=== PATIENT | male | born 1995 | race African-American/Black ===

== ENCOUNTER 2016-04-11 09:59 | Emergency (ER) | payer OTHER ==
[~2016-04-11 09:59] MED LIST: AMOX875T PO; COLC1TAB5 PO; DELT1TAB PO; IBUP600T26 PO; NAPR1TAB23 PO; NORV5TAB PO; PRED20TA PO; RANI150T PO
--- NOTE | 2016-04-11 11:55 | EDDOCDS ---
Physician Documentation [facility] Name: Toi Mendes Age: 20 yrs Sex: Male : 1995 Arrival Date: 04/11/2016 Time: 09:59 Bed TR7 Private MD: [facility] [place] Disposition: 04/11/16 11:45 Discharged to Home/Self Care. Impression: Diarrhea, unspecified. - Condition is Stable. - Discharge Instructions: Food Choices to Help Relieve Diarrhea, Adult, Diarrhea, [id number]. - Medication Reconciliation, Local Pharmacy Hours form. - Follow up: [facility]; When: Call to arrange an appointment; Reason: Further diagnostic work-up, Recheck today's complaints, Continuance of care. - Problem is new. - Symptoms are unchanged. Historical: - Allergies: no known allergies; - Home Meds: 1. none - PMHx: GERD; Migraine Headaches; pericarditis; Hypertension; - PSHx: none; - Social history: Smoking status: Patient states was never smoker of tobacco. No barriers to communication noted, The patient speaks fluent Eritrean, Speaks appropriately for age. - Family history: Not pertinent. - : The pt / caregiver states he / she is not on anticoagulants. Home medication list is obtained from the patient. - Exposure Risk Screening:: None identified. Vital Signs: 04/11 10:01 BP 154 / 70; Pulse 86; Resp 18; Temp 97.9; Pulse Ox 100% ; Weight 98.88 kg / 217.99 elp lbs; Height 5 ft. 10 in. (177.80 cm); Pain 7/10; 11:43 BP 132 / 80; Pulse 78; Resp 18; Temp 99.3; Pulse Ox 100% on R/A; Pain 2/10; ttb 10:01 Body Mass Index 31.28 (98.88 kg, 177.80 cm) elp MDM: 11:16 [facility] Payment Agreement was scanned into [employer] and attached to record. lg 11:18 Financial registration complete. Signatures: Rainer Encinas, Vicente Camargo lg RN RN mlb1 Tuan Koehler PA PA Neha Win, RN RN ttb The chart was reviewed and I authenticate all verbal orders and agree with the evaluation and treatment provided.Attachments: 11:16 [facility] Payment Agreement lg MTDD
--- NOTE | 2016-04-11 11:55 | EDDOCDS ---
Nurse's Notes [facility] Name: Toi Mendes Age: 20 yrs Sex: Male : 1995 Arrival Date: 04/11/2016 Time: 09:59 Bed TR7 Private MD: [address] Diagnosis: Diarrhea, unspecified Presentation: 04/11 10:03 Presenting complaint: Patient states: Abdominal pain and diarrhea began this am. Risk mlb1 factors: the patient reports not having a history of previous torsion. Adult Sepsis Screening: The patient does not have new or worsening altered mentation. Patient's respiratory rate is less than 22. Systolic blood pressure is greater than 100. Patient has a qSOFA score of 0- Negative Sepsis Screen. Suicide/Homicide risk assessment- the patient denies having any suicidal and/or homicidal ideations and does not present with any other emotional, behavioral or mental health complaints. 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 Transition of care: patient was not received from another setting of care. 10:03 Acuity: CASTILLO Level 3 mlb1 10:03 Method Of Arrival: Walkin/Carried/Asstd mlb1 Triage Assessment: 10:04 General: Appears in no apparent distress, Behavior is appropriate for age, cooperative. mlb1 Pain: Location: abdomen Pain currently is 7 out of 10 on a pain scale. Quality of pain is described as crampy. HIV screening NA for this visit. GI: Reports diarrhea. Derm: No deficits noted. Historical: - Allergies: no known allergies; - Home Meds: 1. none - PMHx: GERD; Migraine Headaches; pericarditis; Hypertension; - PSHx: none; - Social history: Smoking status: Patient states was never smoker of tobacco. No barriers to communication noted, The patient speaks fluent Sri Lankan, Speaks appropriately for age. - Family history: Not pertinent. - : The pt / caregiver states he / she is not on anticoagulants. Home medication list is obtained from the patient. - Exposure Risk Screening:: None identified. Screenin:40 Screening information is obtained from the patient. Fall risk: No risks identified. ttb Assistance ADL's: requires no assistance with activities of daily living. Abuse/DV Screen: The patient / caregiver reports he/she is: not in a situation that causes fear, pain or injury. Nutritional screening: No deficits noted. Advance Directives: Currently, there is no health care proxy. home support is adequate. Assessment: 11:40 General: Appears in no apparent distress, well nourished, well groomed, Behavior is ttb appropriate for age, cooperative, pleasant. Pain: Location: abdomen. Neurological: Level of Consciousness is awake, alert. Neurological: Denies dizziness. Cardiovascular: Chest pain is denied. Respiratory: No deficits noted. Airway is patent Denies cough, shortness of breath. GI: Abdomen is non- distended Bowel sounds present X 4 quads. Abd is soft Reports diarrhea. Derm: Skin is normal. Injury Description: No known injury. Vital Signs: 10:01 BP 154 / 70; Pulse 86; Resp 18; Temp 97.9; Pulse Ox 100% ; Weight 98.88 kg; Height 5 elp ft. 10 in. (177.80 cm); Pain 7/10; 11:43 BP 132 / 80; Pulse 78; Resp 18; Temp 99.3; Pulse Ox 100% on R/A; Pain 2/10; ttb 10:01 Body Mass Index 31.28 (98.88 kg, 177.80 cm) [facility] Vitals: 10:01 Log In Time: April 11, 2016 at 09:57. [facility] ED Course: 10:01 Patient visited by Billie Pak PCA. elp 10:01 [facility] [place] is Private Physician. elp 10:01 Patient visited by Billie Pak PCA. elp 10:01 Patient moved to Waiting elp 10:01 Patient moved to Pre RCE elp 10:03 Patient visited by Vicente Reynaga, IWONA. mlb1 10:03 Triage Initiated mlb1 10:05 Patient visited by Vicente Reynaga, IWONA. mlb1 10:44 Patient moved to Triage 1 kc3 11:15 Patient name changed from Toi\S\Berry\S\Mendes\S\ to Toi\S\T\S\Mendes. EDMS 11:16 [facility] [place] Agreement was scanned into [employer] and attached to record. lg 11:17 [facility] is [facility]. btw 11:17 Gisele Avery MD is Attending Physician. btw 11:17 Patient visited by Tuan Koehler PA. btw 11:40 The patient / caregiver is instructed regarding the plan of care and ED course. Patient ttb has correct armband on for positive identification. 11:40 No IV's were initiated during this patient's visit. No procedures done that require ttb assistance. 11:45 [facility], Laura Oseguera is Referral Physician. btw 11:51 Patient moved to TR7 ttb Order Results: There are currently no results for this order. Outcome: 11:40 Discharge Assessment: Patient awake, alert and oriented x 3. No cognitive and/or ttb functional deficits noted. Patient verbalized understanding of disposition instructions. Patient awake and alert. patient administered narcotics - no. The following High Risk Discharge criteria are identified: None. Condition: good Condition: stable Condition: improved. Discharge instructions given to patient, Instructed on discharge instructions, follow up and referral plans. medication usage, diet, Demonstrated understanding of instructions, medications, diet, brat, increased fluids Pt was receptive of discharge instructions/ teaching. No special radiology studies were completed. Property :Personal belongings accompany Pt. 11:45 Discharge ordered by Provider. btw 11:53 Patient left the ED. ttb Signatures: Dispatcher [employer] EDRainer Rojo, Reg Reg Vicente Barrientos RN RN mlb1 Tuan Koehler PA PA btw Neha Carmen, RN RN ttb Billie Pak PCA PCA elp Crane, Kelsi,RN RN kc3 MTDD
--- NOTE | 2016-04-13 12:55 | EDDOCDS ---
Physician Documentation [facility] Name: Toi Mendes Age: 20 yrs Sex: Male : 1995 Arrival Date: 04/11/2016 Time: 09:59 Bed TR7 Private MD: [facility] [place] Disposition: 04/11/16 11:45 Discharged to Home/Self Care. Impression: Diarrhea, unspecified. - Condition is Stable. - Discharge Instructions: Food Choices to Help Relieve Diarrhea, Adult, Diarrhea, [id number]-Jaul. - Medication Reconciliation, Local Pharmacy Hours form. - Follow up: [facility]; When: Call to arrange an appointment; Reason: Further diagnostic work-up, Recheck today's complaints, Continuance of care. - Problem is new. - Symptoms are unchanged. Historical: - Allergies: no known allergies; - Home Meds: 1. none - PMHx: GERD; Migraine Headaches; pericarditis; Hypertension; - PSHx: none; - Social history: Smoking status: Patient states was never smoker of tobacco. No barriers to communication noted, The patient speaks fluent Omani, Speaks appropriately for age. - Family history: Not pertinent. - : The pt / caregiver states he / she is not on anticoagulants. Home medication list is obtained from the patient. - Exposure Risk Screening:: None identified. Vital Signs: 04/11 10:01 BP 154 / 70; Pulse 86; Resp 18; Temp 97.9; Pulse Ox 100% ; Weight 98.88 kg / 217.99 elp lbs; Height 5 ft. 10 in. (177.80 cm); Pain 7/10; 11:43 BP 132 / 80; Pulse 78; Resp 18; Temp 99.3; Pulse Ox 100% on R/A; Pain 2/10; ttb 10:01 Body Mass Index 31.28 (98.88 kg, 177.80 cm) elp MDM: 11:16 [facility] [facility] [place] Agreement was scanned into [employer] and attached to record. lg 11:18 Financial registration complete. lg 14:02 T-Sheet-- Draft Copy was scanned into [employer] and attached to record. gb Signatures: Samantha Mederos, Reg Reg gb Rainer Encinas, Reg Reg lg Vicente Reynaga RN RN mlb1 Tuan Koehler PA PA btw Conner, Teresa, RN RN ttb The chart was reviewed and I authenticate all verbal orders and agree with the evaluation and treatment provided.Attachments: 11:16 [facility] Payment Agreement lg 14:02 T-Sheet-- Draft Copy gb Chart Complete MTDD
--- NOTE | 2016-04-13 12:55 | EDDOCDS ---
Nurse's Notes [facility] Name: Toi Mendes Age: 20 yrs Sex: Male : 1995 Arrival Date: 04/11/2016 Time: 09:59 Bed TR7 Private MD: [address] Diagnosis: Diarrhea, unspecified Presentation: 04/11 10:03 Presenting complaint: Patient states: Abdominal pain and diarrhea began this am. Risk mlb1 factors: the patient reports not having a history of previous torsion. Adult Sepsis Screening: The patient does not have new or worsening altered mentation. Patient's respiratory rate is less than 22. Systolic blood pressure is greater than 100. Patient has a qSOFA score of 0- Negative Sepsis Screen. Suicide/Homicide risk assessment- the patient denies having any suicidal and/or homicidal ideations and does not present with any other emotional, behavioral or mental health complaints. 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 Transition of care: patient was not received from another setting of care. 10:03 Acuity: CASTILLO Level 3 mlb1 10:03 Method Of Arrival: Walkin/Carried/Asstd mlb1 Triage Assessment: 10:04 General: Appears in no apparent distress, Behavior is appropriate for age, cooperative. mlb1 Pain: Location: abdomen Pain currently is 7 out of 10 on a pain scale. Quality of pain is described as crampy. HIV screening NA for this visit. GI: Reports diarrhea. Derm: No deficits noted. Historical: - Allergies: no known allergies; - Home Meds: 1. none - PMHx: GERD; Migraine Headaches; pericarditis; Hypertension; - PSHx: none; - Social history: Smoking status: Patient states was never smoker of tobacco. No barriers to communication noted, The patient speaks fluent Puerto Rican, Speaks appropriately for age. - Family history: Not pertinent. - : The pt / caregiver states he / she is not on anticoagulants. Home medication list is obtained from the patient. - Exposure Risk Screening:: None identified. Screenin:40 Screening information is obtained from the patient. Fall risk: No risks identified. ttb Assistance ADL's: requires no assistance with activities of daily living. Abuse/DV Screen: The patient / caregiver reports he/she is: not in a situation that causes fear, pain or injury. Nutritional screening: No deficits noted. Advance Directives: Currently, there is no health care proxy. home support is adequate. Assessment: 11:40 General: Appears in no apparent distress, well nourished, well groomed, Behavior is ttb appropriate for age, cooperative, pleasant. Pain: Location: abdomen. Neurological: Level of Consciousness is awake, alert. Neurological: Denies dizziness. Cardiovascular: Chest pain is denied. Respiratory: No deficits noted. Airway is patent Denies cough, shortness of breath. GI: Abdomen is non- distended Bowel sounds present X 4 quads. Abd is soft Reports diarrhea. Derm: Skin is normal. Injury Description: No known injury. Vital Signs: 10:01 BP 154 / 70; Pulse 86; Resp 18; Temp 97.9; Pulse Ox 100% ; Weight 98.88 kg; Height 5 elp ft. 10 in. (177.80 cm); Pain 7/10; 11:43 BP 132 / 80; Pulse 78; Resp 18; Temp 99.3; Pulse Ox 100% on R/A; Pain 2/10; ttb 10:01 Body Mass Index 31.28 (98.88 kg, 177.80 cm) [facility] Vitals: 10:01 Log In Time: April 11, 2016 at 09:57. [facility] ED Course: 10:01 Patient visited by Billie Pak PCA. elp 10:01 [facility] [place] is Private Physician. elp 10:01 Patient visited by Billie Pak PCA. elp 10:01 Patient moved to Waiting elp 10:01 Patient moved to Pre RCE elp 10:03 Patient visited by Vicente Reynaga, IWONA. mlb1 10:03 Triage Initiated mlb1 10:05 Patient visited by Vicente Reynaga, IWONA. mlb1 10:44 Patient moved to Triage 1 kc3 11:15 Patient name changed from Toi\S\Berry\S\Mendes\S\ to Toi\S\T\S\Mendes. EDMS 11:16 [facility] [place] Agreement was scanned into [employer] and attached to record. lg 11:17 [facility] btw 11:17 Gisele Avery MD is Attending Physician. btw 11:17 Patient visited by Tuan Koehler PA. btw 11:40 The patient / caregiver is instructed regarding the plan of care and ED course. Patient ttb has correct armband on for positive identification. 11:40 No IV's were initiated during this patient's visit. No procedures done that require ttb assistance. 11:45 [facility], Laura Oseguera is Referral Physician. btw 11:51 Patient moved to TR7 ttb 14:02 T-Sheet-- Draft Copy was scanned into [employer] and attached to record. gb Order Results: There are currently no results for this order. Outcome: 11:40 Discharge Assessment: Patient awake, alert and oriented x 3. No cognitive and/or ttb functional deficits noted. Patient verbalized understanding of disposition instructions. Patient awake and alert. patient administered narcotics - no. The following High Risk Discharge criteria are identified: None. Condition: good Condition: stable Condition: improved. Discharge instructions given to patient, Instructed on discharge instructions, follow up and referral plans. medication usage, diet, Demonstrated understanding of instructions, medications, diet, brat, increased fluids Pt was receptive of discharge instructions/ teaching. No special radiology studies were completed. Property :Personal belongings accompany Pt. 11:45 Discharge ordered by Provider. btw 11:53 Patient left the ED. ttb Signatures: Dispatcher [employer] EDMS aSmantha Mederos, Reg Reg gb Rainer Encinas, Reg Reg lg Vicente Reynaga RN RN mlb1 Tuan Koehler PA PA btw Neha Carmen RN RN ttb Billie Pak, TAMI PRODUCT SAFETY MANAGER Kelsea Quiroz,RN RN kc3 Chart Complete MTDD
--- NOTE | 2016-04-13 12:55 | EDDOCDS ---
Physician Documentation [facility] Name: Toi Mendes Age: 20 yrs Sex: Male : 1995 Arrival Date: 04/11/2016 Time: 09:59 Bed TR7 Private MD: [facility] [place] Disposition: 04/11/16 11:45 Discharged to Home/Self Care. Impression: Diarrhea, unspecified. - Condition is Stable. - Discharge Instructions: Food Choices to Help Relieve Diarrhea, Adult, Diarrhea, [id number]. - Medication Reconciliation, Local Pharmacy Hours form. - Follow up: [facility]; When: Call to arrange an appointment; Reason: Further diagnostic work-up, Recheck today's complaints, Continuance of care. - Problem is new. - Symptoms are unchanged. Historical: - Allergies: no known allergies; - Home Meds: 1. none - PMHx: GERD; Migraine Headaches; pericarditis; Hypertension; - PSHx: none; - Social history: Smoking status: Patient states was never smoker of tobacco. No barriers to communication noted, The patient speaks fluent Estonian, Speaks appropriately for age. - Family history: Not pertinent. - : The pt / caregiver states he / she is not on anticoagulants. Home medication list is obtained from the patient. - Exposure Risk Screening:: None identified. Vital Signs: 04/11 10:01 BP 154 / 70; Pulse 86; Resp 18; Temp 97.9; Pulse Ox 100% ; Weight 98.88 kg / 217.99 elp lbs; Height 5 ft. 10 in. (177.80 cm); Pain 7/10; 11:43 BP 132 / 80; Pulse 78; Resp 18; Temp 99.3; Pulse Ox 100% on R/A; Pain 2/10; ttb 10:01 Body Mass Index 31.28 (98.88 kg, 177.80 cm) elp MDM: 11:16 [facility] Payment Agreement was scanned into [employer] and attached to record. lg 11:18 Financial registration complete. lg 14:02 T-Sheet-- Draft Copy was scanned into [employer] and attached to record. gb Signatures: Samantha Mederos, Reg Reg gb Rainer Encinas, Reg Reg lg Vicente Reynaga RN RN mlb1 Tuan Koehler PA PA btw Conner, Teresa, RN RN ttb The chart was reviewed and I authenticate all verbal orders and agree with the evaluation and treatment provided.Attachments: 11:16 [facility] Payment Agreement lg 14:02 T-Sheet-- Draft Copy gb Chart Complete MTDD
== END 2016-04-11 11:53 | disposition home or self-care (01) ==
LOC: M ED 09:59
DX: R10.9 Unspecified abdominal pain (principal); R19.7 Diarrhea, unspecified; I10 Essential (primary) hypertension; K21.9 Gastro-esophageal reflux disease without esophagitis; G43.909 Migraine, unspecified, not intractable, without status migrainosus; I31.9 Disease of pericardium, unspecified

== ENCOUNTER 2016-04-19 12:30 | Emergency (ER) | payer OTHER ==
[2016-04-19] MEDS ORDERED: KETOROLAC 30 MG/ML VIAL (J1885) As Ordered ONE (13:03)
--- NOTE | 2016-04-19 14:08 | EDDOCDS ---
Nurse's Notes [facility] Name: Toi Mendes Age: 20 yrs Sex: Male : 1995 Arrival Date: 04/19/2016 Time: 12:30 Bed PD Private MD: [address] Diagnosis: Headache;Low back pain Presentation: 04/19 12:34 Presenting complaint: Patient states: Migraine POLLARD with history of the same. Reports jo3 "pins and needles" numbness in YE LE which started 1-2 hours ago. reports inability to walk normally. Denies urinary incontinence. Adult Sepsis Screening: The patient does not have new or worsening altered mentation. Patient's respiratory rate is less than 22. Systolic blood pressure is greater than 100. Patient has a qSOFA score of 0- Negative Sepsis Screen. Suicide/Homicide risk assessment- the patient denies having any suicidal and/or homicidal ideations and does not present with any other emotional, behavioral or mental health complaints. 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 Transition of care: patient was not received from another setting of care. 12:34 Method Of Arrival: Walkin/Carried/Asstd jo3 12:45 Acuity: CASTILLO Level 3 ck1 Triage Assessment: 12:36 General: Appears in no apparent distress, Behavior is appropriate for age, cooperative, jo3 pleasant. Pain: Location: YE legs, head Pain currently is 7 out of 10 on a pain scale. HIV screening NA for this visit Offered previously. Neurological: Level of Consciousness is awake, alert, Oriented to person, place, time, Reports YE LE tingling/numbness. Cardiovascular: No deficits noted. Respiratory: No deficits noted. Airway is patent Respiratory effort is even, unlabored. Derm: Skin is intact, Skin is dry, Skin is normal. Historical: - Allergies: No known drug Allergies; - Home Meds: 1. none - PMHx: GERD; Hypertension; Migraine Headaches; pericarditis; - PSHx: none; - Social history: Smoking status: Patient states was never smoker of tobacco. No barriers to communication noted, The patient speaks fluent Icelandic, Speaks appropriately for age. - Family history: Not pertinent. - : The pt / caregiver states he / she is not on anticoagulants. Home medication list is obtained from the patient. - Exposure Risk Screening:: None identified. Screenin:11 Screening information is obtained from the patient. Fall risk: No risks identified. ck1 Assistance ADL's: requires no assistance with activities of daily living. Abuse/DV Screen: The patient / caregiver reports he/she is: not in a situation that causes fear, pain or injury. Nutritional screening: No deficits noted. Advance Directives: Currently, there is no health care proxy. home support is adequate. Assessment: 13:09 General: Appears in no apparent distress, comfortable, Behavior is fussy. Pain: ck1 Location: head, back and neck Pain currently is 8 out of 10 on a pain scale. Neurological: Level of Consciousness is awake, alert, Oriented to person, place, time. GI: No deficits noted. Derm: Skin is pink, warm & dry. 14:02 Reassessment: Patient states symptoms have improved. General: Appears comfortable, well kcs developed, well nourished, well groomed, Behavior is cooperative, pleasant. Pain: Pain currently is 5 out of 10 on a pain scale. Neurological: Level of Consciousness is awake, alert, Gait is steady. Respiratory: Airway is patent Respiratory effort is even, unlabored, Respiratory pattern is regular, symmetrical. Derm: Skin is intact, is healthy with good turgor, Skin is dry, Skin is black. Vital Signs: 12:32 BP 185 / 96; Pulse 92; Resp 18; Temp 98.7; Pulse Ox 100% on R/A; Weight 97.52 kg (R); elp Height 5 ft. 10 in. (177.80 cm) (R); Pain 7/10; 12:59 BP 190 / 102 (man/); kcs 13:56 BP 132 / 89; Pulse 69; Resp 18; Temp 97.3(O); Pulse Ox 100% on R/A; Pain 5/10; ct3 12:32 Body Mass Index 30.85 (97.52 kg, 177.80 cm) [facility] Vitals: 12:32 Log In Time: April 19, 2016 at 12:30. [facility] ED Course: 12:31 Patient visited by Billie Pak PCA. elp 12:31 [facility], Laura Oseguera is Private Physician. elp 12:31 Patient moved to Waiting el 12:32 Patient visited by Billie Pak PCA. elp 12:38 Patient visited by Frida Glez RN. jo3 12:45 Patient moved to Pre RCE ck1 12:45 Triage Initiated ck1 12:46 Patient moved to Triage 2 ck1 12:47 Tuan Koehler PA is PHCP. btw 12:47 Demi Blevins MD is Attending Physician. btw 12:50 Patient visited by Tuan Koehler PA. btw 13:07 Patient moved to PD2 / ck1 13:08 Patient visited by Gabby Doe RN. ck1 13:11 The patient / caregiver is instructed regarding the plan of care and ED course. ck1 13:39 Patient visited by Macy Orr PCA. ct3 13:51 [facility] btw 13:57 Patient visited by Macy Orr PCA. ct3 14:02 No IV's were initiated during this patient's visit. No procedures done that require kcs assistance. 14:05 [facility] Payment Agreement was scanned into [employer] and attached to record. mm15 Administered Medications: 13:08 Drug: ketorolac 30 mg [ketorolac 30 mg/mL (1 mL) injection solution (1 mL)] Route: IM; ck1 Site: left deltoid; Order Results: There are currently no results for this order. Outcome: 13:51 Discharge ordered by Provider. btw 14:02 Discharge Assessment: Patient awake, alert and oriented x 3. No cognitive and/or kcs functional deficits noted. Patient verbalized understanding of disposition instructions. Patient awake and alert. patient administered narcotics - no. The following High Risk Discharge criteria are identified: None. Discharged to home ambulatory, with significant other. Condition: stable. Discharge instructions given to patient, Instructed on discharge instructions, follow up and referral plans. medication usage, no driving heavy equipment, no drinking with medication, Demonstrated understanding of instructions, medications, Pt was receptive of discharge instructions/ teaching. Property sent home with patient. 14:07 No special radiology studies were completed. kcs 14:07 Patient left the ED. kcs Signatures: Reta Newton RN RN kcs Gabby Doe RN RN ck1 Frida Glez RN RN jo3 Taun Koehler PA PA btw Macy Orr, AVIONICS SYSTEMS INTEGRATION SPECIALIST [employer] SYSTEMS INTEGRATION SPECIALIST ct3 Rodriguez, Nay mm15 Pasha, Billie, [employer]S INTEGRATION SPECIALIST [employer]S INTEGRATION SPECIALIST elp MTDD
--- NOTE | 2016-04-19 14:08 | EDDOCDS ---
Physician Documentation [facility] Name: Toi Mendes Age: 20 yrs Sex: Male : 1995 Arrival Date: 04/19/2016 Time: 12:30 Bed PD Private MD: [facility] [place] Disposition: 04/19/16 13:51 Discharged to Home/Self Care. Impression: Headache, Low back pain. - Condition is Stable. - Discharge Instructions: Back Pain, Adult, Wewt-[id number], Tension Headache, Duhi-zg-[id number]. - Prescriptions for Medrol (Nuno) 4 mg Oral Tablets, Dose Pack - take 1 Pack by ORAL route as directed - follow package instructions; 1 packet. Robaxin- 750 750 mg Oral Tablet - take 1 tablet by ORAL route every 6 hours As needed; 40 tablet. - Medication Reconciliation, Local Pharmacy Hours form. - Follow up: [facility]; When: Tomorrow; Reason: Further diagnostic work-up, Recheck today's complaints, Continuance of care. - Problem is new. - Symptoms have improved. Historical: - Allergies: No known drug Allergies; - Home Meds: 1. none - PMHx: GERD; Hypertension; Migraine Headaches; pericarditis; - PSHx: none; - Social history: Smoking status: Patient states was never smoker of tobacco. No barriers to communication noted, The patient speaks fluent French, Speaks appropriately for age. - Family history: Not pertinent. - : The pt / caregiver states he / she is not on anticoagulants. Home medication list is obtained from the patient. - Exposure Risk Screening:: None identified. Vital Signs: 04/19 12:32 BP 185 / 96; Pulse 92; Resp 18; Temp 98.7; Pulse Ox 100% on R/A; Weight 97.52 kg / elp 214.99 lbs (R); Height 5 ft. 10 in. (177.80 cm) (R); Pain 7/10; 12:59 BP 190 / 102 (man/); kcs 13:56 BP 132 / 89; Pulse 69; Resp 18; Temp 97.3(O); Pulse Ox 100% on R/A; Pain 5/10; ct3 12:32 Body Mass Index 30.85 (97.52 kg, 177.80 cm) elp MDM: 12:57 Recheck B/P ordered. btw 12:57 ketorolac 30 mg IM once ordered. btw 13:55 Financial registration complete. mm15 14:05 [facility] Payment Agreement was scanned into [employer] and attached to record. mm15 Administered Medications: 13:08 Drug: ketorolac 30 mg [ketorolac 30 mg/mL (1 mL) injection solution (1 mL)] Route: IM; ck1 Site: left deltoid; Signatures: Reta Newton RN RN Gabby Montes RN RN ck1 Frida Glez RN RN jo3 Tuan Koehler PA PA btw Nay Rodriguez mm15 The chart was reviewed and I authenticate all verbal orders and agree with the evaluation and treatment provided.Attachments: 14:05 [facility] Payment Agreement mm15 MTDD
--- NOTE | 2016-04-21 15:08 | EDDOCDS ---
Physician Documentation [facility] Name: Toi Mendes Age: 20 yrs Sex: Male : 1995 Arrival Date: 04/19/2016 Time: 12:30 Bed PD Private MD: [facility] [place] Disposition: 04/19/16 13:51 Discharged to Home/Self Care. Impression: Headache, Low back pain. - Condition is Stable. - Discharge Instructions: Back Pain, Adult, [id number], Tension Headache, Tzep-vz-Gfsp. - Prescriptions for Medrol (Nuno) 4 mg Oral Tablets, Dose Pack - take 1 Pack by ORAL route as directed - follow package instructions; 1 packet. Robaxin- 750 750 mg Oral Tablet - take 1 tablet by ORAL route every 6 hours As needed; 40 tablet. - Medication Reconciliation, Local Pharmacy Hours form. - Follow up: [facility]; When: Tomorrow; Reason: Further diagnostic work-up, Recheck today's complaints, Continuance of care. - Problem is new. - Symptoms have improved. Historical: - Allergies: No known drug Allergies; - Home Meds: 1. none - PMHx: GERD; Hypertension; Migraine Headaches; pericarditis; - PSHx: none; - Social history: Smoking status: Patient states was never smoker of tobacco. No barriers to communication noted, The patient speaks fluent Portuguese, Speaks appropriately for age. - Family history: Not pertinent. - : The pt / caregiver states he / she is not on anticoagulants. Home medication list is obtained from the patient. - Exposure Risk Screening:: None identified. Vital Signs: 04/19 12:32 BP 185 / 96; Pulse 92; Resp 18; Temp 98.7; Pulse Ox 100% on R/A; Weight 97.52 kg / elp 214.99 lbs (R); Height 5 ft. 10 in. (177.80 cm) (R); Pain 7/10; 12:59 BP 190 / 102 (man/); kcs 13:56 BP 132 / 89; Pulse 69; Resp 18; Temp 97.3(O); Pulse Ox 100% on R/A; Pain 5/10; ct3 12:32 Body Mass Index 30.85 (97.52 kg, 177.80 cm) elp MDM: 12:57 Recheck B/P ordered. btw 12:57 ketorolac 30 mg IM once ordered. btw 13:55 Financial registration complete. mm15 14:05 [facility] Payment Agreement was scanned into [employer] and attached to record. mm15 04/20 11:03 T-Sheet-- Draft Copy was scanned into [employer] and attached to record. gb Administered Medications: 04/19 13:08 Drug: ketorolac 30 mg [ketorolac 30 mg/mL (1 mL) injection solution (1 mL)] Route: IM; ck1 Site: left deltoid; Signatures: Reta Newton RN RN kcs Samantha Mederos, Reg Reg gb Gabby Doe RN RN ck1 Frida Glez RN RN jo3 Tuan Koehler PA PA btw Nay Rodriguez mm15 The chart was reviewed and I authenticate all verbal orders and agree with the evaluation and treatment provided.Attachments: 14:05 [facility] Payment Agreement mm15 04/20 11:03 T-Sheet-- Draft Copy gb Chart Complete MTDD
--- NOTE | 2016-04-21 15:08 | EDDOCDS ---
Nurse's Notes [facility] Name: Toi Mendes Age: 20 yrs Sex: Male : 1995 Arrival Date: 04/19/2016 Time: 12:30 Bed PD Private MD: [address] Diagnosis: Headache;Low back pain Presentation: 04/19 12:34 Presenting complaint: Patient states: Migraine POLLARD with history of the same. Reports jo3 "pins and needles" numbness in YE LE which started 1-2 hours ago. reports inability to walk normally. Denies urinary incontinence. Adult Sepsis Screening: The patient does not have new or worsening altered mentation. Patient's respiratory rate is less than 22. Systolic blood pressure is greater than 100. Patient has a qSOFA score of 0- Negative Sepsis Screen. Suicide/Homicide risk assessment- the patient denies having any suicidal and/or homicidal ideations and does not present with any other emotional, behavioral or mental health complaints. 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 Transition of care: patient was not received from another setting of care. 12:34 Method Of Arrival: Walkin/Carried/Asstd jo3 12:45 Acuity: CASTILLO Level 3 ck1 Triage Assessment: 12:36 General: Appears in no apparent distress, Behavior is appropriate for age, cooperative, jo3 pleasant. Pain: Location: YE legs, head Pain currently is 7 out of 10 on a pain scale. HIV screening NA for this visit Offered previously. Neurological: Level of Consciousness is awake, alert, Oriented to person, place, time, Reports YE LE tingling/numbness. Cardiovascular: No deficits noted. Respiratory: No deficits noted. Airway is patent Respiratory effort is even, unlabored. Derm: Skin is intact, Skin is dry, Skin is normal. Historical: - Allergies: No known drug Allergies; - Home Meds: 1. none - PMHx: GERD; Hypertension; Migraine Headaches; pericarditis; - PSHx: none; - Social history: Smoking status: Patient states was never smoker of tobacco. No barriers to communication noted, The patient speaks fluent Eritrean, Speaks appropriately for age. - Family history: Not pertinent. - : The pt / caregiver states he / she is not on anticoagulants. Home medication list is obtained from the patient. - Exposure Risk Screening:: None identified. Screenin:11 Screening information is obtained from the patient. Fall risk: No risks identified. ck1 Assistance ADL's: requires no assistance with activities of daily living. Abuse/DV Screen: The patient / caregiver reports he/she is: not in a situation that causes fear, pain or injury. Nutritional screening: No deficits noted. Advance Directives: Currently, there is no health care proxy. home support is adequate. Assessment: 13:09 General: Appears in no apparent distress, comfortable, Behavior is fussy. Pain: ck1 Location: head, back and neck Pain currently is 8 out of 10 on a pain scale. Neurological: Level of Consciousness is awake, alert, Oriented to person, place, time. GI: No deficits noted. Derm: Skin is pink, warm & dry. 14:02 Reassessment: Patient states symptoms have improved. General: Appears comfortable, well kcs developed, well nourished, well groomed, Behavior is cooperative, pleasant. Pain: Pain currently is 5 out of 10 on a pain scale. Neurological: Level of Consciousness is awake, alert, Gait is steady. Respiratory: Airway is patent Respiratory effort is even, unlabored, Respiratory pattern is regular, symmetrical. Derm: Skin is intact, is healthy with good turgor, Skin is dry, Skin is black. Vital Signs: 12:32 BP 185 / 96; Pulse 92; Resp 18; Temp 98.7; Pulse Ox 100% on R/A; Weight 97.52 kg (R); elp Height 5 ft. 10 in. (177.80 cm) (R); Pain 7/10; 12:59 BP 190 / 102 (man/); kcs 13:56 BP 132 / 89; Pulse 69; Resp 18; Temp 97.3(O); Pulse Ox 100% on R/A; Pain 5/10; ct3 12:32 Body Mass Index 30.85 (97.52 kg, 177.80 cm) [facility] Vitals: 12:32 Log In Time: April 19, 2016 at 12:30. [facility] ED Course: 12:31 Patient visited by Billie Pak PCA. elp 12:31 [facility], Laura Oseguera is Private Physician. elp 12:31 Patient moved to Waiting el 12:32 Patient visited by Billie Pak PCA. elp 12:38 Patient visited by Frida Glez RN. jo3 12:45 Patient moved to Pre RCE ck1 12:45 Triage Initiated ck1 12:46 Patient moved to Triage 2 ck1 12:47 Tuan Koehler PA is PHCP. btw 12:47 Demi Blevins MD is Attending Physician. btw 12:50 Patient visited by Tuan Koehler PA. btw 13:07 Patient moved to PD2 / ck1 13:08 Patient visited by Gabby Doe RN. ck1 13:11 The patient / caregiver is instructed regarding the plan of care and ED course. ck1 13:39 Patient visited by Macy Orr PCA. ct3 13:51 [facility]. btw 13:57 Patient visited by Macy Orr PCA. ct3 14:02 No IV's were initiated during this patient's visit. No procedures done that require kcs assistance. 14:05 [facility] Payment Agreement was scanned into [employer] and attached to record. mm15 02 11:03 T-Sheet-- Draft Copy was scanned into [employer] and attached to record. gb Administered Medications: 0202 13:08 Drug: ketorolac 30 mg [ketorolac 30 mg/mL (1 mL) injection solution (1 mL)] Route: IM; ck1 Site: left deltoid; Order Results: There are currently no results for this order. Outcome: 13:51 Discharge ordered by Provider. btw 14:02 Discharge Assessment: Patient awake, alert and oriented x 3. No cognitive and/or kcs functional deficits noted. Patient verbalized understanding of disposition instructions. Patient awake and alert. patient administered narcotics - no. The following High Risk Discharge criteria are identified: None. Discharged to home ambulatory, with significant other. Condition: stable. Discharge instructions given to patient, Instructed on discharge instructions, follow up and referral plans. medication usage, no driving heavy equipment, no drinking with medication, Demonstrated understanding of instructions, medications, Pt was receptive of discharge instructions/ teaching. Property sent home with patient. 14:07 No special radiology studies were completed. kcs 14:07 Patient left the ED. kcs Signatures: Reta Newton RN RN Samantha Goldsmith, Reg Reg gb Brook,Gabby,RN RN ck1 Frida Glez,RN RN jo3 Tuan Koehler PA PA btw Dominga, Macy, DIRECTOR AGRICULTURAL SERVICES DIRECTOR AGRICULTURAL SERVICES ct3 Nay Rodriguez mm15 Billie Pak, DIRECTOR AGRICULTURAL SERVICES DIRECTOR AGRICULTURAL SERVICES elp Chart Complete MTDD
--- NOTE | 2016-04-21 15:08 | EDDOCDS ---
Physician Documentation [facility] Name: Toi Mendes Age: 20 yrs Sex: Male : 1995 Arrival Date: 04/19/2016 Time: 12:30 Bed PD Private MD: [facility] [place] Disposition: 04/19/16 13:51 Discharged to Home/Self Care. Impression: Headache, Low back pain. - Condition is Stable. - Discharge Instructions: Back Pain, Adult, Pzsw-tl-[id number], Tension Headache, Gqfu-gn-Bnvl. - Prescriptions for Medrol (Nuno) 4 mg Oral Tablets, Dose Pack - take 1 Pack by ORAL route as directed - follow package instructions; 1 packet. Robaxin- 750 750 mg Oral Tablet - take 1 tablet by ORAL route every 6 hours As needed; 40 tablet. - Medication Reconciliation, Local Pharmacy Hours form. - Follow up: [facility]; When: Tomorrow; Reason: Further diagnostic work-up, Recheck today's complaints, Continuance of care. - Problem is new. - Symptoms have improved. Historical: - Allergies: No known drug Allergies; - Home Meds: 1. none - PMHx: GERD; Hypertension; Migraine Headaches; pericarditis; - PSHx: none; - Social history: Smoking status: Patient states was never smoker of tobacco. No barriers to communication noted, The patient speaks fluent Nepali, Speaks appropriately for age. - Family history: Not pertinent. - : The pt / caregiver states he / she is not on anticoagulants. Home medication list is obtained from the patient. - Exposure Risk Screening:: None identified. Vital Signs: 04/19 12:32 BP 185 / 96; Pulse 92; Resp 18; Temp 98.7; Pulse Ox 100% on R/A; Weight 97.52 kg / elp 214.99 lbs (R); Height 5 ft. 10 in. (177.80 cm) (R); Pain 7/10; 12:59 BP 190 / 102 (man/); kcs 13:56 BP 132 / 89; Pulse 69; Resp 18; Temp 97.3(O); Pulse Ox 100% on R/A; Pain 5/10; ct3 12:32 Body Mass Index 30.85 (97.52 kg, 177.80 cm) elp MDM: 12:57 Recheck B/P ordered. btw 12:57 ketorolac 30 mg IM once ordered. btw 13:55 Financial registration complete. mm15 14:05 [facility] Payment Agreement was scanned into [employer] and attached to record. mm15 04/20 11:03 T-Sheet-- Draft Copy was scanned into [employer] and attached to record. gb Administered Medications: 04/19 13:08 Drug: ketorolac 30 mg [ketorolac 30 mg/mL (1 mL) injection solution (1 mL)] Route: IM; ck1 Site: left deltoid; Signatures: Reta Newton RN RN kcs Samantha Mederos, Reg Reg gb Gabby Doe RN RN ck1 Frida Glez RN RN jo3 Tuan Koehler PA PA btw Nay Rodriguez mm15 The chart was reviewed and I authenticate all verbal orders and agree with the evaluation and treatment provided.Attachments: 14:05 [facility] Payment Agreement mm15 04/20 11:03 T-Sheet-- Draft Copy gb Chart Complete MTDD
== END 2016-04-19 14:07 | disposition home or self-care (01) ==
LOC: M ED 12:30
DX: G43.909 Migraine, unspecified, not intractable, without status migrainosus (principal); M54.5 Low back pain; I10 Essential (primary) hypertension; K21.9 Gastro-esophageal reflux disease without esophagitis; Z86.79 Personal history of other diseases of the circulatory system
CPT/HCPCS: 96372; 99283; J1885